=== PATIENT | female | born 1975 | race Two or more races ===

== ENCOUNTER 2022-02-18 00:21 | Emergency (ER) | payer BC, OTHER ==
[~2022-02-18] VITALS: Ht 165.1 cm; Wt 83.9 kg
[~2022-02-18 00:21] MED LIST: ALBUPOW26; AZITTAB11
[2022-02-18 00:22] VITALS: BP 149/90
[2022-02-18] MEDS ORDERED: KETOROLAC TROMETH 30 MG/ML 1ML VIAL IM ONE (03:45)
[2022-02-18] MEDS ORDERED: BACL10TA PO (04:07)
== END 2022-02-18 04:36 | disposition home or self-care (01) ==
LOC: ER 00:21
DX: S33.5XXA Sprain of ligaments of lumbar spine, initial encounter (principal); M54.16 Radiculopathy, lumbar region; J45.909 Unspecified asthma, uncomplicated; Z79.2 Long term (current) use of antibiotics; Z79.899 Other long term (current) drug therapy; X50.1XXA Overexertion from prolonged static or awkward postures, initial encounter; Y93.89 Activity, other specified; Y92.89 Other specified places as the place of occurrence of the external cause; Y99.8 Other external cause status
CPT/HCPCS: 96372; 99283; J1885